=== PATIENT | male | born 1990 | race Caucasian/White ===

== ENCOUNTER → 2019-03-03 | Outpatient (CLI) | payer OTHER ==
[~2019-03-03] MED LIST: HYDROCODONE-AP1 EAC6 PO; IBUPROFEN 600600 M1 PO; KEFLEX500 MG PO; NOHOMEMEDICATIONS
--- NOTE | 2019-03-03 11:49 | 2DMMODE ---
[place] [address] 2 D/M-MODE ECHOCARDIOGRAM Name: KLEVER BELLENCER SONAL Room: [facility]#: [id number] Admission: 03/03/19 Attend Phys: FINA HANSON Discharge: Date of : 89 Date of Service: 03/03/19 1149 Report #: [id number] THIS REPORT FOR: //name// APPROVED REPORT Study performed: 03/03/2019 08:17:29 EXAM: Comprehensive 2D, Doppler, and color-flow Echocardiogram Patient Location: Out-Patient BSA: 1.76 HR: 60 bpm BP: 122/72 mmHg Other Information Study Quality: Good Indications Biatrial Enlargement 2D Dimensions IVSd: 8.63 (7-11mm) LVOT Diam: 20.73 (18-24mm) LVDd: 42.87 mm PWd: 8.87 (7-11mm) Ascending Ao: 23.37 (22-36mm) LVDs: 31.17 (25-40mm) Aortic Root: 24.05 mm Volumes Left Atrial Volume (Systole) LA ESV Index: 13.20 mL/m2 Aortic Valve AoV Peak Capo.: 1.08 m/s AO Peak Gr.: 4.63 mmHg LVOT Max P.06 mmHg AO Mean Gr.: 2.40 mmHg LVOT Mean P.38 mmHg LVOT Max V: 0.87 m/s AO V2 VTI: 20.51 cm LVOT Mean V: 0.53 m/s MATT (VTI): 3.29 cm2 LVOT V1 VTI: 19.97 cm Mitral Valve E/A Ratio: 1.49 MV Decel. Time: 221.70 ms MV E Max Capo.: 0.84 m/s MV PHT: 64.29 ms MVA (PHT): 3.42 cm2 [place] [address] 2 D/M-MODE ECHOCARDIOGRAM Name: [facility]IMA BELLE [id number] Admission: 03/03/19 Attend Phys: FINA HANSON Discharge: Date of : 89 Date of Service: 03/03/19 1149 Report #: [id number] TDI E/Lateral E': 4.94 E/Medial E': 6.00 Medial E' Capo.: 0.14 m/s Lateral E' Capo.: 0.17 m/s Pulmonary Valve PV Peak Capo.: 1.18 m/s PV Peak Gr.: 5.54 mmHg Tricuspid Valve RAP Estimate: 5.00 mmHg TR Peak Gr.: 19.22 mmHg RVSP: 24.22 mmHg PA Pressure: 24.22 mmHg Left Ventricle The left ventricle is normal size. There is normal LV segmental wall motion. There is normal left ventricular wall thickness. Left ventricular systolic function is normal. The left ventricular ejection fraction is within the normal range. LVEF is 50-55%. The left ventricular diastolic function is normal. Right Ventricle The right ventricle is normal size. The right ventricular systolic function is normal. Atria The left atrium size is normal. The right atrium size is normal. Aortic Valve The aortic valve is normal in structure. No aortic regurgitation is present. There is no aortic valvular stenosis. Mitral Valve The mitral valve is normal in structure. Mild mitral regurgitation. No evidence of mitral valve stenosis. Tricuspid Valve The tricuspid valve is normal in structure. Mild tricuspid regurgitation. Pulmonic Valve The pulmonary valve is normal in structure. There is no pulmonic valvular regurgitation[place] [address] 2 D/M-MODE ECHOCARDIOGRAM Name: KLVEER BELLEVERNA PRUITT Room: [facility]#: [id number] Admission: 03/03/19 Attend Phys: FINA HANSON Discharge: Date of : 89 Date of Service: 03/03/19 1149 Report #: [id number] The aortic root is normal in size. IVC is normal in size and collapses >50% with inspiration. Pericardium There is no pericardial effusion. <Conclusion> LVEF is 50-55%. There is normal LV segmental wall motion. There is no aortic valvular stenosis. No aortic regurgitation is present. Mild mitral regurgitation. No evidence of mitral valve stenosis. <ELECTRONICALLY SIGNED> By: Karlos Belcher MD, FACC 03/03/19 1149 1149 1149 Kralos Belcher MD, FACC /INF
== END ==
LOC: M.CRD 08:00
DX: I08.1 Rheumatic disorders of both mitral and tricuspid valves (principal)